=== PATIENT | male | born 1970 | race Caucasian/White ===

== ENCOUNTER 2016-05-17 19:47 | Emergency (ER) | payer OTHER ==
[~2016-05-17] VITALS: Ht 182.8 cm; Wt 127.0 kg
[2016-05-17] MEDS ORDERED: CEPHALEXIN500 M1 PO (21:52)
== END 2016-05-17 22:57 | disposition home or self-care (01) ==
LOC: ED 19:47
DX: S71.112A Laceration without foreign body, left thigh, initial encounter (principal); X58.XXXA Exposure to other specified factors, initial encounter; Y93.89 Activity, other specified; Y92.9 Unspecified place or not applicable; Y99.9 Unspecified external cause status